=== PATIENT | male | born 1975 | race Caucasian/White ===

== ENCOUNTER 2016-10-12 15:19 | Inpatient (IN) | payer OTHER ==
[2016-10-12 15:56] VITALS: BMI 43.3
--- NOTE | 2016-10-12 17:55 | HP ---
CIWA Score - CIWA Score Nausea/Vomitin Muscle Tremors: 3 Anxiety: 3 Agitation: 3 Paroxysmal Sweats: 2 Orientation: 0-Oriented Tacttile Disturbances: 2-Mild Itch/Numbness/Burn Auditory Disturbances: 2-Mild Harshness/Frighten Visual Disturbances: 2-Mild Sensitivity Headache: 2-Mild CIWA-Ar Total Score: 22 Admission ROS BHS - HPI Chief Complaint: i need help to stop drinking alcohol and cocaine Allergies/Adverse Reactions: Allergies Allergy/AdvReac Type Severity Reaction Status Date / Time Penicillins Allergy Severe Jaw swollen Verified 10/12/16 20:21 bee stings Allergy Severe Swelling Uncoded 10/12/16 20:22 History of Present Illness: this 41 years old male with alcohol and cocaine dependence,withdrawal symptom, last detox [facility] 02/03/15 to 02/07/15 syncope alcohl related morbid obesity hypertension schizoaffective disorder Exam Limitations: No Limitations - Ebola screening Have you traveled outside of the country in the last 21 days: No Have you had contact with anyone from an Ebola affected area: No Have you been sick,other than usual withdrawal symptoms: No Do you have a fever: No - Review of Systems Constitutional: Loss of Appetite, Malaise, Night Sweats, Changes in sleep, Weakness EENT: reports: Nose Congestion Respiratory: reports: No Symptoms reported (sleep apnea) Cardiac: reports: No Symptoms Reported GI: reports: Nausea, Vomiting, Abdominal cramping : reports: No Symptoms Reported Musculoskeletal: reports: Back Pain, Muscle Pain Integumentary: reports: Dryness Neuro: reports: Headache, Tremors Endocrine: reports: No Symptoms Reported Hematology: reports: No Symptoms Reported Psychiatric: reports: Judgement Intact, Mood/Affect Appropiate, Orientated x3 ( schizoaffective disorder), other Patient History - Patient Medical History Hx Anemia: No Hx Asthma: No Hx Chronic Obstructive Pulmonary Disease (COPD): No Hx Cancer: No Hx Cardiac Disorders: No Hx Congestive Heart Failure: No Hx Hypertension: Yes (on med) Hx Hypercholesterolemia: No Hx Pacemaker: No HX Cerebrovascular Accident: No Hx Seizures: No Hx Dementia: No Hx Diabetes: No Hx Gastrointestinal Disorders: No Hx Liver Disease: No Hx Genitourinary Disorders: No Hx Sexually Transmitted Disorders: No Hx Renal Disease (ESRD): No Hx Thyroid Disease: No Hx Human Immunodeficiency Virus (HIV): No (last 2014negative ) Hx Hepatitis C: No Hx Depression: Yes Hx Suicide Attempt: No Hx Bipolar Disorder: Yes Hx Schizophrenia: No Other Medical History: no suicidal,nohomicidal - Patient Surgical History Past Surgical History: Yes Hx Cataract Extraction: No (eye surgery right , 1993) Hx Orthopedic Surgery: Yes (RIGHT KNEE SURGERY 1997) Other Surgical History: right eye muscle weaknee he uses glasses Anesthesia Reaction: No - PPD History Previous Implant?: Yes Documented Results: Negative w/o proof Date: 02/15/15 Results: 0 mm PPD to be Administered?: Yes - Smoking Cessation Smoking history: Current every day smoker Have you smoked in the past 12 months: Yes Aproximately how many cigarettes per day: 3 Cigars Per Day: 0 Hx Chewing Tobacco Use: No Initiated information on smoking cessation: Yes 'Breaking Loose' booklet given: 10/12/16 - Substance & Tx. History Hx Alcohol Use: Yes Hx Substance Use: Yes Substance Use Type: Alcohol, Cocaine Hx Substance Use Treatment: Yes ([facility] 02/03/15 to 02/07/15) - Substances Abused Alcohol Route: Oral Frequency: 1-3 times last 30 days Amount used: 12 of 12 ozs of beer Age of first use: 11 Date of Last Use: 10/12/16 Cocaine Route: Inhalation Frequency: 1-2 times per week Amount used: 40$ Age of first use: 16 Date of Last Use: 10/10/16 Family Disease History - Family Disease History Family Disease History: Heart Disease: Father (alcohol,), Mother, Other : Father Admission Physical Exam S - Vital Signs Vital Signs: Vital Signs - 24 hr 10/12/16 15:54 Temperature 99.2 F Pulse Rate 79 Respiratory 20 Rate Blood Pressure 133/86 - Physical General Appearance: Yes: Intoxicated, Obese, Tremorous, Irritable, Sweating, Anxious HEENTM: Yes: Normal ENT Inspection, LUL, Pharynx Normal Respiratory: Yes: Lungs Clear, Normal Breath Sounds, No Respiratory Distress Neck: Yes: Within Normal Limits Breast: Yes: Within Normal Limits Cardiology: Yes: Within Normal Limits, Regular Rhythm, Regular Rate, S1, S2 Abdominal: Yes: Normal Bowel Sounds, Non Tender, Flat, Soft Genitourinary: Yes: Within Normal Limits Back: Yes: Muscle Spasm Musculoskeletal: Yes: Within Normal Limits, full range of Motion, Back pain 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 intact, Alert, Motor Strength 5/5 Integumentary: Yes: Dry Lymphatic: Yes: Within Normal Limits - Diagnostic (1) Schizoaffective disorder Current Visit: No Status: Acute (2) Hypertension Current Visit: No Status: Chronic (3) Morbidly obese Current Visit: No Status: Chronic (4) Alcohol dependence with uncomplicated withdrawal Current Visit: Yes Status: Acute (5) Alcohol dependence with uncomplicated intoxication Current Visit: Yes Status: Acute Cleared for Admission [facility] - Detox or Rehab [facility] Level of Care: Medically Managed Detox Regimen/Protocol: Librium [facility] Breath Alcohol Content Breath Alcohol Content: 0.227 Urine Drug Screen - Results Drug Screen Negative: No Urine Drug Screen Results: [place]-Cocaine, MET-Methamphetamine
[2016-10-12] MEDS ORDERED: chlordiazePOXIDE HCL 25 MG CAPSULE PO PRN (18:07)
[2016-10-12] MEDS ORDERED: IBUPROFEN 400 MG TABLET (FP) PO PRN (18:07)
[2016-10-12] MEDS ORDERED: hydrOXYzine PAMOATE 50 MG CAPSULE (FP) PO PRN (18:07)
[2016-10-12] MEDS ORDERED: LOPERAMIDE HCL 2 MG CAPSULE PO PRN (18:07)
[2016-10-12] MEDS ORDERED: ACETAMINOPHEN 325 MG TABLET (FP) PO PRN (18:07)
[2016-10-12] MEDS ORDERED: MAGNESIUM CITRATE 300 ML BOTTLE PO PRN (18:07)
[2016-10-12] MEDS ORDERED: MAG HYDROX/AL HYDROX/SIMETH 30 ML UNIT-DOSE CUP PO PRN (18:07)
[2016-10-12] MEDS ORDERED: chlordiazePOXIDE HCL 25 MG CAPSULE PO ONE (18:07)
[2016-10-12] MEDS ORDERED: MAGNESIUM HYDROX 2400MG/30ML ORAL SUSPENSION 30 ML CUP PO PRN (18:07)
[2016-10-12] MEDS ORDERED: P-EPHED 60MG/TRIPROLIDI 2.5MG TABLET PO PRN (18:07)
[2016-10-12] MEDS ORDERED: MENTHOL/PHENOL 1 EACH UD MM PRN (18:07)
[2016-10-12] MEDS ORDERED: guaiFENesin/D-METHORPHAN HB 10 ML UNIT-DOSE CUPS PO PRN (18:07)
[2016-10-12] MEDS: NICOTINE 14 MG/24 HOURS TOPICAL PATCH TD SCH (20:02)
[2016-10-12] MEDS: chlordiazePOXIDE HCL 25 MG CAPSULE PO SCH (22:14)
[2016-10-12] MEDS: diphenhydrAMINE HCL 50 MG CAPSULE PO PRN (22:14)
[2016-10-12] MEDS: THIAMINE HCL 100 MG TABLET (FP) PO SCH (22:14)
[2016-10-13] MEDS: diphenhydrAMINE HCL 50 MG CAPSULE PO PRN (00:55)
[2016-10-13] MEDS: chlordiazePOXIDE HCL 25 MG CAPSULE PO SCH ×3 (04:51→18:24)
[2016-10-13] MEDS: FUROSEMIDE 40 MG TABLET (FP) PO SCH ×2 (05:46→14:09)
[2016-10-13] MEDS ORDERED: cloNIDine HCL 0.1 MG TABLET PO ONE (07:40)
--- NOTE | 2016-10-13 08:42 | EKG ---
Test Reason : Blood Pressure : / mmHG Vent. Rate : 081 BPM Atrial Rate : 081 BPM P-R Int : 172 ms QRS Dur : 112 ms QT Int : 408 ms P-R-T Axes : -03 057 049 degrees QTc Int : 473 ms NORMAL SINUS RHYTHM INCOMPLETE LEFT BUNDLE BRANCH BLOCK BORDERLINE ECG NO PREVIOUS ECGS AVAILABLE Confirmed by RONALD LAYNE MD ([id number]) on 10/13/2016 8:42:17 AM Referred By: Confirmed By:RONALD LAYNE MD
[2016-10-13 09:32] VITALS: BP 160/90; PULSE 79; TEMP 96.1
[2016-10-13] MEDS ORDERED: PRENATAL VITAMINS W/ FOLIC ACID TABLET (FP) PO SCH (10:00)
[2016-10-13] MEDS ORDERED: RAMIPRIL 5 MG CAPSULE (FP) PO SCH (10:00)
[2016-10-13] MEDS ORDERED: ATENOLOL 50 MG TABLET (FP) PO SCH (10:00)
[2016-10-13] MEDS: NICOTINE 14 MG/24 HOURS TOPICAL PATCH TD SCH (10:07)
[2016-10-13 10:09] LABS: MCH 31.9 pg (25.7-33.7); MEAN CELL VOLUME 96.8 fl (80-96); MEAN PLT VOLUME 9.1 fl (7.5-11.1); PLATELET COUNT 90 K/MM3 (134-434); RDW 14.6 % (11.9-15.9); WHITE BLOOD COUNT 6.3 K/mm3 (4.0-10.0)
[2016-10-13 10:20] LABS: ALBUMIN 3.4 g/dl (3.4-5.0); ALK PHOS 97 U/L (45-117); ANION GAP 11 (8-16); BILIRUBIN,TOTAL 1.3 mg/dL (0.2-1.0); CALCIUM 9.1 mg/dL (8.5-10.1); CO2 26 mmol/L (21-32); COCKROFT - GAULT 286.44; CREATININE 0.8 mg/dL (0.7-1.3); GLUCOSE,RANDOM 145 mg/dL (74-106); SGOT/AST 106 U/L (15-37); SGPT/ALT 65 U/L (12-78); TOT PROT 6.8 g/dl (6.4-8.2)
--- NOTE | 2016-10-13 10:42 | PN ---
[facility] CIWA - CIWA Score Nausea/Vomitin-No Nausea/No Vomiting Muscle Tremors: 4-Moderate,w/Arms Extend Anxiety: 4-Mod. Anxious/Guarded Agitation: 4-Moderately Restless Paroxysmal Sweats: 3 Orientation: 0-Oriented Tacttile Disturbances: 1-Very Mild Itch/Numbness Auditory Disturbances: 0-None Visual Disturbances: 0-None Headache: 0-None Present CIWA-Ar Total Score: 16 BHS Progress Note (SOAP) Subjective: Anxiety,tremors,sweating,interrupted sleep,restless Objective: 10/13/16 10:40 Vital Signs - 8 hr 10/13/16 10/13/16 10/13/16 03:30 06:29 09:32 Temperature 97.5 F L 96.1 F L Pulse Rate 82 78 79 Respiratory 18 16 18 Rate Blood Pressure 172/93 160/90 Laboratory Tests 10/13/16 10/13/16 07:00 07:00 WBC 6.3 RBC 4.40 Hgb 14.0 Hct 42.6 MCV 96.8 H MCHC 33.0 RDW 14.6 Plt Count 90 L D MPV 9.1 Sodium 142 Potassium 3.4 L Chloride 105 Carbon Dioxide 26 Anion Gap 11 BUN 4 L D Creatinine 0.8 D Creat Clearance w eGFR > 60 Random Glucose 145 H D Calcium 9.1 Total Bilirubin 1.3 H D AST 106 H D ALT 65 Alkaline Phosphatase 97 Total Protein 6.8 Albumin 3.4 swelling both legs because of venous stasis Assessment: 10/13/16 10:40 Withdrawal sx. Plan: Continue detox increase altace to 10mg d/c atenolol,pt. was on metoprolol.
[2016-10-13] MEDS ORDERED: RAMIPRIL 5 MG CAPSULE (FP) PO ONE (11:15)
[2016-10-13 11:16] LABS: HIV 1 & 2 AB NEGATIVE; HIV 1 AGp24 NEGATIVE
--- NOTE | 2016-10-13 11:36 | PN ---
[id number] given to Dr. Hodge
[2016-10-13] MEDS ORDERED: INFLUENZA VACCINE 45 MCG/0.5 ML (MDV 16-17) IM ONE (12:00)
[2016-10-13] MEDS: POTASSIUM CHLORIDE TABS 20 MEQ TABLET.ER (FP) PO SCH ×2 (12:00→23:16)
--- NOTE | 2016-10-13 12:27 | CONSULT ---
[facility] Psychiatric Consult - Data Date of interview: 10/13/16 Admission source: [facility] Identifying data: Readmission to [facility] for this 41 y/o male seeking detox treatment for alcohol and cocaine dependence.Patient is ,a father of one,domiciled,unemployed and supported on Social Security benefits. Substance Abuse History: - Smoking Cessation. Smoking history: Current every day smoker. Have you smoked in the past 12 months: Yes. Aproximately how many cigarettes per day: 3. Cigars Per Day: 0. Hx Chewing Tobacco Use: No. Initiated information on smoking cessation: Yes. 'Breaking Loose' booklet given : 10/12/16. - Substance & Tx. History. Hx Alcohol Use: Yes. Hx Substance Use : Yes. Substance Use Type: Alcohol, Cocaine. Hx Substance Use Treatment: Yes ( [facility] 02/03/15 to 02/07/15). - Substances Abused. Alcohol. Route: Oral. Frequency: 1-3 times last 30 days. Amount used: 12 of 12 ozs of beer. Age of first use: 11. Date of Last Use: 10/12/16. Cocaine. Route: Inhalation. Frequency: 1-2 times per week. Amount used: 40$. Age of first use: 16. Date of Last Use: 10/10/16. Confirmed by patient. Medical History: Morbid obesity,hypertension and venous stasis (lower extremities).History of cataract extraction (right eye) and orthopedic surgery in 1997 (right knee). Psychiatric History: Significant history of psychiatric illness.Extended stay at the [facility] five years ago.Diagnosed with " Bipolar Disorder and Schizophrenia ".Maintained on a regimen of lithium 600 mg/am + 900 mg/hs + prozac 30 mg po daily + risperdal 4 mg/hs.Mr Rodriguez reports that he is followed by a private psychiatrist,Dr Gandara,in [place], [place].He denies history of suicide attempts.Last took his medications two days ago ( prior to this [facility] visit). Physical/Sexual Abuse/Trauma History: No history of sexual abuse reported. Additional Comment: Urine Drug Screen Results: [place]-Cocaine, MET- Methamphetamine.Noted Mental Status Exam - Mental Status Exam Alert and Oriented to: Time, Place, Person Cognitive Function: Good Patient Appearance: Well Groomed (morbidly obese,imposing stature) Mood: Nervous, Anxious, Apprehensive Affect: Mood Congruent Patient Behavior: Fatigued (heavy breathing), Cooperative Speech Pattern: Clear, Appropriate Voice Loudness: Normal Thought Process: Goal Oriented Thought Disorder: Not Present Hallucinations: Denies Suicidal Ideation: Denies Homicidal Ideation: Denies Insight/Judgement: Poor Sleep: Fair Appetite: Good Muscle strength/Tone: Normal Gait/Station: Normal Psychiatric Findings - Problem List ([place] 1, 2,3) (1) Alcohol dependence with uncomplicated withdrawal Current Visit: Yes Status: Acute (2) Cocaine dependence Current Visit: Yes Status: Acute (3) Nicotine dependence Current Visit: Yes Status: Acute (4) Amphetamine abuse Current Visit: Yes Status: Acute (5) Schizoaffective disorder Current Visit: Yes Status: Chronic (6) Dyspnea on exertion Current Visit: Yes Status: Acute (7) Acne rosacea Current Visit: Yes Status: Chronic (8) Hypertension Current Visit: Yes Status: Chronic (9) Morbidly obese Current Visit: Yes Status: Chronic (10) Right ankle swelling Current Visit: Yes Status: Acute - Initial Treatment Plan Initial Treatment Plan: Psychoeducation.Detoxification.Obtain lithium level.Patient got transferred to [facility] for medical care prior to initiation of psychotropic medications (lithium,risperdal and prozac) at [facility].Liaison-Psychiatry will follow at [facility].
[2016-10-13] MEDS ORDERED: METOPROLOL TARTRATE 50 MG TABLET (FP) PO SCH (22:00)
[2016-10-13] MEDS ORDERED: chlordiazePOXIDE HCL 25 MG CAPSULE PO SCH (23:00)
[2016-10-13] MEDS: THIAMINE HCL 100 MG TABLET (FP) PO SCH (23:17)
[2016-10-14] MEDS ORDERED: RAMIPRIL 5 MG CAPSULE (FP) PO SCH (10:00)
[2016-10-14] MEDS ORDERED: chlordiazePOXIDE 5 MG CAPSULE PO SCH (23:00)
[2016-10-15] MEDS ORDERED: chlordiazePOXIDE HCL 10 MG CAPSULE PO SCH (23:00)
== END 2016-10-13 23:21 | disposition short-term general hospital (02) | DRG 774 ==
LOC: YASAS 15:19 → Y3N 16:21
PROVIDERS: ADMIT Internal Medicine; ATTEND Internal Medicine
PROC: HZ2ZZZZ Detoxification Services for Substance Abuse Treatment (ICD-10-PCS; principal; 2016-10-12)
DX: F10.230 Alcohol dependence with withdrawal, uncomplicated (principal); F14.20 Cocaine dependence, uncomplicated; F15.10 Other stimulant abuse, uncomplicated; F17.210 Nicotine dependence, cigarettes, uncomplicated; E66.01 Morbid (severe) obesity due to excess calories; Z68.41 Body mass index [BMI] 40.0-44.9, adult; R06.02 Shortness of breath; R06.00 Dyspnea, unspecified; L71.9 Rosacea, unspecified; I10 Essential (primary) hypertension; M25.471 Effusion, right ankle; M25.472 Effusion, left ankle
CPT/HCPCS: 36415; 80053; 85027; 86593; 87389; 93005; 93010

== ENCOUNTER 2016-10-13 11:59 | Inpatient (IN) | payer OTHER ==
[2016-10-13] MEDS ORDERED: ASPIRIN 81 MG CHEWABLE TABLETS PO ONE (12:07)
[2016-10-13] MEDS ORDERED: FUROSEMIDE 40 MG/4 ML INJECTABLE VIAL IVPUSH ONE (12:25)
[2016-10-13] MEDS ORDERED: ASPIRIN 81 MG CHEWABLE TABLETS ONE (12:27)
[2016-10-13 12:29] VITALS: BMI 42.7
--- NOTE | 2016-10-13 12:36 | PDOC ---
History of Present Illness - General History Source: Patient, Old Records Exam Limitations: No Limitations - History of Present Illness Initial Comments: 10/13/16 12:43 The patient is a 41-year-old man with a significant past medical history of hypertension, polysubstance abuse (alcohol and cocaine dependence last detox at [facility] was 10/12/2016 for alcohol; prior to that last detox was in 2014 for alcohol as well), syncope- alcohol related, schizophrenia, bipolar disorder, anxiety who was sent from [facility] for further evaluation of shortness of breath. Upon ER arrival, patient was noted to be 99% on room air. He self- admitted himself at [facility], due top extensive alcohol abuse over the weekend (Vodka), yesterday. Patient states that during admission, he felt short of breath with associated symptoms of left-sided chest pressure sensations while lying supine. He describes his symptoms as "running in a marathon". His nurse immediately pulled his stretcher up, which helped significantly with his symptoms. He recalls also feeling short of breath when walking for the past few days. Despite compliance with all of his medications, including Lasix (40 mg BID ), he notes worsening leg swelling. He also notes significant weight gain throughout a 6-7 month period (reports 60 lbs). He also reports urinary frequency. No history of myocardial infarction, stents, cardiac cauterization. No fever, chills, weakness. No headaches, lightheadedness, dizziness, palpitations, cough, neck pain. No dysuria, foul smelling urine. Allergies: Penicillin. Past Surgical History: Right eye surgery. Right knee surgery. Social History: Current everyday cigarette smoker (approximately 3 cigarettes/ day). Daily ETOH use. Cocaine use (lats use was 2 months ago). <Mine Dangelo - Last Filed: 10/13/16 15:04> <Mc Carrera - Last Filed: 10/13/16 15:09> - General Chief Complaint: Shortness of Breath Stated Complaint: Shortness of Breath Time Seen by Provider: 10/13/16 12:03 Past History <Mine Dangelo - Last Filed: 10/13/16 15:04> - Past Medical History Anemia: No Asthma: No Cancer: No Cardiac Disorders: No CVA: No COPD: No CHF: No Dementia: No Diabetes: No GI Disorders: No Disorders: No HTN: Yes (on med) Hypercholesterolemia: No Kidney Stones: No Liver Disease: No Psychiatric Problems: Yes (Schizophrenia Bipolar) Suicide Attempt (Hx): No Seizures: No Thyroid Disease: No Other medical history: Venous Stasis Alcohol abuse Cocaine abuse - Surgical History Abdominal Surgery: No Appendectomy: No Cardiac Surgery: No Cholecystectomy: No Lung Surgery: No Neurologic Surgery: No Orthopedic Surgery: Yes (RIGHT KNEE SURGERY 1997) - Family Disease History Family Disease History: Heart Disease: Father (hypertension) - Reproductive History Testicular Surgery: No - Psycho/Social/Smoking Cessation Hx Anxiety: Yes Suicidal Ideation: No Smoking History: Current every day smoker Have you smoked in the past 12 months: Yes Number of Cigarettes Smoked Daily: 4 Cigars Per Day: 0 Information on smoking cessation initiated: Yes 'Breaking Loose' booklet given: 10/13/16 Hx Alcohol Use: Yes (daily) Drug/Substance Use Hx: Yes (cocaine) Substance Use Type: Alcohol, Cocaine Hx Substance Use Treatment: Yes ([facility] 02/03/15 to 02/07/15) <Mc Carrera - Last Filed: 10/13/16 15:09> - Past Medical History Allergies/Adverse Reactions: Allergies Allergy/AdvReac Type Severity Reaction Status Date / Time Penicillins Allergy Severe Jaw swollen Verified 10/13/16 12:17 bee stings Allergy Severe Swelling Uncoded 10/13/16 12:17 Home Medications: Ambulatory Orders [place] Carbonate [Eskalith -] 600 mg PO AM 10/12/16 [place] Carbonate [Eskalith -] 900 mg PO HS 10/12/16 Chlordiazepoxide [Librium -] 0 mg PO ASDIR 10/13/16 Fluoxetine HCl [Prozac] 30 mg PO DAILY 10/13/16 Furosemide [Lasix -] 40 mg PO BID 10/13/16 Hydroxyzine Pamoate [Vistaril -] 50 mg PO Q4H PRN 10/13/16 Metoprolol Tartrate [Lopressor] 50 mg PO BID 10/13/16 Nicotine Patch [Nicoderm Patch -] 1 patch TD DAILY 10/13/16 Ramipril 10 mg PO DAILY 10/13/16 Risperidone 4 mg PO HS 10/13/16 Thiamine HCl [Vitamin B1] 100 mg PO DAILY 04/17/17 Review of Systems - Review of Systems Constitutional: No: Chills, Fever Respiratory: Yes: Orthopnea, Shortness of Breath, SOB with Exertion. No: Cough Cardiac (ROS): Yes: Chest Pain, Edema. No: Lightheadedness, Palpitations ABD/GI: Yes: Nausea. No: Vomiting All Other Systems: Reviewed and Negative <Mc Carrera - Last Filed: 10/13/16 15:09> *Physical Exam - Vital Signs Last Vital Signs Temp Pulse Resp BP Pulse Ox 97.9 F 70 18 153/89 99 10/13/16 12:17 10/13/16 12:17 10/13/16 12:17 10/13/16 12:17 10/13/16 12:17 - Physical Exam Comments: 10/13/16 12:44 GENERAL: The patient is awake, alert, and fully oriented, in no acute distress. Morbidly obese. HEAD: Normal with no signs of trauma. EYES: Pupils equal, round and reactive to light, extraocular movements intact, sclera anicteric, conjunctiva clear with no pallor. ENT: Ears normal, nares patent, oropharynx clear without exudates. Moist mucous membranes. NECK: Normal range of motion, supple without lymphadenopathy, JVD, or masses. LUNGS: Slight decreased at the bases but inspiratory crackles. No wheezing. HEART: Regular rate and rhythm, normal S1 and S2 without murmur or rub. ABDOMEN: Soft/nontender/nondistended. BS wnl. No guarding or rebound. No palpable masses. No hepatosplenomegaly. EXTREMITIES: Early hilary stasis development. 2+ pitting edema, bilaterally. Normal range of motion. No clubbing or cyanosis. No cords, erythema, or tenderness. NEUROLOGICAL: Cranial nerves II through XII grossly intact. Normal speech. PSYCH: Normal mood, normal affect. SKIN: Warm, Dry, normal turgor, no rashes or lesions noted. <Mine Dangelo - Last Filed: 10/13/16 15:04> - Vital Signs Last Vital Signs Temp Pulse Resp BP Pulse Ox 97.9 F 70 18 153/89 99 10/13/16 12:17 10/13/16 12:17 10/13/16 12:17 10/13/16 12:17 10/13/16 12:17 <Mc Carrera - Last Filed: 10/13/16 15:09> Heart Score/ECG Review #1 ECG reviewed & interpreted by me at: 12:11 General ECG Interpretation: Sinus Rhythm, Normal Rate (68), Normal Intervals, No acute ischemic changes <Mc Carrera - Last Filed: 10/13/16 15:09> ED Treatment Course - LABORATORY CBC & Chemistry Diagram: 10/13/16 12:35 10/13/16 12:35 - RADIOLOGY Radiograph Interpretation: 10/13/16 13:16 EXAM: RAD/CHEST PA LAT Chest: HISTORY IMPRESSION: Frontal and lateral view of the chest is provided. There is moderate cardiomegaly. There is increased perihilar vascular lung markings and mild increased interstitial lung markings concerning for CHF. No focal consolidation or pleural effusion is seen. - Medications Given in the ED: ED Medications Discontinued Medications Generic Name Dose Route Start Last Admin Trade Name Freq PRN Reason Stop Dose Admin Aspirin 162 mg 10/13/16 12:07 10/13/16 12:41 Asa - PO 10/13/16 12:08 162 mg ONCE ONE Administration <Mine Dangelo - Last Filed: 10/13/16 15:04> - LABORATORY CBC & Chemistry Diagram: 10/13/16 12:35 10/13/16 12:35 - RADIOLOGY Radiology Studies Ordered: Category Date Time Status CHEST PA & LAT [RAD] Stat Radiology 10/13/16 12:07 Ordered <[email or web address] - Last Filed: 10/13/16 15:09> Medical Decision Making - Medical Decision Making 10/13/16 14:[address] Dominguez. 10/13/16 15:[address] Dominguez. 10/13/16 15:[address] Dominguez. Case was discussed. <Mine Dangelo - Last Filed: 10/13/16 15:04> - Medical Decision Making 10/13/16 12:37 A portion of this note was documented by scribe services under my direction. I have reviewed the details of the note, within reason, and agree with the documentation with the following case summary and management plan written by me. 41-year-old male with history of hypertension, alcohol and cocaine abuse sent from [facility] where he was admitted yesterday for alcohol detox now complaining of worsening shortness of breath with dyspnea on exertion and orthopnea, associated localized left-sided chest pressure today. Has been compliant with his medications, last cocaine use was 2 weeks ago, but reports months of worsening leg edema and weight gain. No history of NM or stents. Vital signs normal. Morbidly obese. Bibasilar crackles. Bilateral edema. 41-year-old male with history of hypertension and alcohol/cocaine abuse with progressive dyspnea/volume overload and now chest pressure. Will need cardiac workup to rule out ACS versus CHF exacerbation. Labs, urinalysis EKG, chest x-ray Aspirin, Lasix Admission 10/13/16 15:08 CXR consistent with congestion. labs wnl, trop negative. comfortable in stretcher, accepted for inpatient tele by Dr. Dominguez. <Mc Carrera - Last Filed: 10/13/16 15:09> *DC/Admit/Observation/Transfer - Attestations Scribe Attestion: 10/13/16 12:44 Documentation prepared by Mine Dangelo, acting as medical assisting instructor for Mc Carrera MD. <Mine Dangelo - Last Filed: 10/13/16 15:04> - Discharge Dispostion Admit: Yes <Mc Carrera - Last Filed: 10/13/16 15:09> Diagnosis at time of Disposition: Precordial chest pain, Dyspnea on exertion - Discharge Dispostion Condition at time of disposition: Fair - Referrals Referrals: Jamie New MD [Primary Care Provider] -
[2016-10-13] MEDS ORDERED: FUROSEMIDE 40 MG/4 ML INJECTABLE VIAL ONE (12:44)
[2016-10-13 13:22] LABS: BASOPHIL 1.1 % (0-2.0); EOSINOPHIL 1.4 % (0-4.5); MCH 32.3 pg (25.7-33.7); MCHC 33.8 g/dl (32.0-35.9); MEAN CELL VOLUME 95.7 fl (80-96); MEAN PLT VOLUME 8.9 fl (7.5-11.1); NEUTROPHILS 63.2 % (42.8-82.8); PLATELET COUNT 87 K/MM3 (134-434); RDW 14.9 % (11.9-15.9)
[2016-10-13 13:43] LABS: INR 1.44 (0.82-1.09)
[2016-10-13 13:50] LABS: CALCIUM 9.2 mg/dL (8.5-10.1)
[2016-10-13 14:10] LABS: ALBUMIN 3.5 g/dl (3.4-5.0); ALK PHOS 99 U/L (45-117); ANION GAP 8 (8-16); BILIRUBIN,TOTAL 1.6 mg/dL (0.2-1.0); CO2 29 mmol/L (21-32); CREATININE 0.7 mg/dL (0.7-1.3); GLUCOSE,RANDOM 97 mg/dL (74-106); MAGNESIUM 1.4 mg/dL (1.8-2.4); SGOT/AST 104 U/L (15-37); SGPT/ALT 66 U/L (12-78); TOT PROT 7.1 g/dl (6.4-8.2); TROPONIN I < 0.02 ng/ml (0.00-0.05)
[2016-10-13] MEDS ORDERED: LOPERAMIDE HCL 2 MG CAPSULE PO ONE (16:18)
[2016-10-13] MEDS ORDERED: chlordiazePOXIDE HCL 25 MG CAPSULE PO ONE (16:18)
[2016-10-13] MEDS ORDERED: LOPERAMIDE HCL 2 MG CAPSULE ONE (16:35)
[2016-10-13] MEDS ORDERED: chlordiazePOXIDE HCL 25 MG CAPSULE ONE (16:35)
--- NOTE | 2016-10-13 17:47 | HP ---
Admitting History and Physical - Primary Care Physician PCP: Carolann Dominguez - Admission History of Present Illness: 41-year-old man with a significant past medical history of hypertension, polysubstance abuse (alcohol and cocaine dependence last detox at [facility] was 10/12 for alcohol; prior to that last detox was in 2014 for alcohol as well), syncope- alcohol related, schizophrenia, bipolar disorder, anxiety who was sent from [facility] for further evaluation of shortness of breath. Upon ER arrival, patient was noted to be 99% on room air. He self-admitted himself at [facility], due top extensive alcohol abuse over the weekend (Vodka), yesterday. Patient states that during admission, he felt short of breath with associated symptoms of left-sided chest pressure sensations while lying supine. He describes his symptoms as "running in a marathon". His nurse immediately pulled his stretcher up, which helped significantly with his symptoms. He recalls also feeling short of breath when walking for the past few days. Despite compliance with all of his medications, including Lasix (40 mg BID), he notes worsening leg swelling. He also notes significant weight gain throughout a 6-7 month period (reports 60 lbs). He also reports urinary frequency. - Past Medical History Cardiovascular: Yes: HTN - Smoking History Smoking history: Current every day smoker Have you smoked in the past 12 months: Yes Aproximately how many cigarettes per day: 4 - Alcohol/Substance Use Hx Alcohol Use: Yes (daily) Home Medications - Allergies Allergies/Adverse Reactions: Allergies Allergy/AdvReac Type Severity Reaction Status Date / Time Penicillins Allergy Severe Jaw swollen Verified 10/13/16 12:17 bee stings Allergy Severe Swelling Uncoded 10/13/16 12:17 - Home Medications Home Medications: Ambulatory Orders [place] Carbonate [Eskalith -] 600 mg PO AM 10/12/16 [place] Carbonate [Eskalith -] 900 mg PO HS 10/12/16 Chlordiazepoxide [Librium -] 0 mg PO ASDIR 10/13/16 Fluoxetine HCl [Prozac] 30 mg PO DAILY 10/13/16 Furosemide [Lasix -] 40 mg PO BID 10/13/16 Hydroxyzine Pamoate [Vistaril -] 50 mg PO Q4H PRN 10/13/16 Metoprolol Tartrate [Lopressor] 50 mg PO BID 10/13/16 Nicotine Patch [Nicoderm Patch -] 1 patch TD DAILY 10/13/16 Ramipril 10 mg PO DAILY 10/13/16 Risperidone 4 mg PO HS 10/13/16 Thiamine HCl [Vitamin B1] 100 mg PO DAILY 10/13/16 Family Disease History - Family Disease History Family Disease History: Heart Disease: Father (alcohol,), Mother, Other : Father Physical Examination Vital Signs: Vital Signs Temperature 97.9 F 10/13/16 12:17 Pulse Rate 71 10/13/16 16:31 Respiratory Rate 16 10/13/16 16:31 Blood Pressure 160/89 10/13/16 16:31 O2 Sat by Pulse Oximetry (%) 97 10/13/16 16:31 Constitutional: Yes: No Distress HENT: Yes: Atraumatic Neck: Yes: Supple Cardiovascular: Yes: Regular Rate and Rhythm Respiratory: Yes: Rhonchi Gastrointestinal: Yes: Normal Bowel Sounds Extremities: Yes: WNL Edema: LLE: 1+, RLE: 1+ Neurological: Yes: Alert, Oriented Problem List - Problems (1) Alcohol dependence with uncomplicated intoxication Assessment/Plan: on librium prn detox consult Code(s): F10.220 - ALCOHOL DEPENDENCE WITH INTOXICATION, UNCOMPLICATED (2) Alcohol dependence with uncomplicated withdrawal Code(s): F10.230 - ALCOHOL DEPENDENCE WITH WITHDRAWAL, UNCOMPLICATED (3) Amphetamine abuse Code(s): F15.10 - OTHER STIMULANT ABUSE, UNCOMPLICATED (4) Cocaine dependence Code(s): F14.20 - COCAINE DEPENDENCE, UNCOMPLICATED (5) Dyspnea on exertion Code(s): R06.09 - OTHER FORMS OF DYSPNEA (6) Nicotine dependence Assessment/Plan: on nicotine patch Code(s): F17.200 - NICOTINE DEPENDENCE, UNSPECIFIED, UNCOMPLICATED (7) Precordial chest pain Assessment/Plan: fu cardiac enzymes cardiology consult Code(s): R07.2 - PRECORDIAL PAIN (8) Right ankle swelling Code(s): M25.471 - EFFUSION, RIGHT ANKLE Assessment/Plan Laboratory Tests 10/13/16 10/13/16 10/13/16 12:35 12:35 12:35 WBC 7.0 RBC 4.44 Hgb 14.3 Hct 42.4 MCV 95.7 MCHC 33.8 RDW 14.9 Plt Count 87 L MPV 8.9 Neutrophils % 63.2 Lymphocytes % 19.4 Monocytes % 14.9 H Eosinophils % 1.4 Basophils % 1.1 INR 1.44 H Sodium 143 Potassium 3.9 Chloride 106 Carbon Dioxide 29 Anion Gap 8 BUN 4 L Creatinine 0.7 Creat Clearance w eGFR > 60 Random Glucose 97 D Calcium 9.2 Magnesium 1.4 L Total Bilirubin 1.6 H D AST 104 H ALT 66 Alkaline Phosphatase 99 Creatine Kinase 543 H Creatine Kinase Index 0.7 CK-MB (CK-2) 3.972 H CK-MB (CK-2) Rel Index Troponin I < 0.02 B-Natriuretic Peptide Total Protein 7.1 Albumin 3.5 10/13/16 10/13/16 12:35 12:35 WBC RBC Hgb Hct MCV MCHC RDW Plt Count MPV Neutrophils % Lymphocytes % Monocytes % Eosinophils % Basophils % INR Sodium Potassium Chloride Carbon Dioxide Anion Gap BUN Creatinine Creat Clearance w eGFR Random Glucose Calcium Magnesium Total Bilirubin AST ALT Alkaline Phosphatase Creatine Kinase Creatine Kinase Index CK-MB (CK-2) CK-MB (CK-2) Rel Index Cancelled Troponin I B-Natriuretic Peptide 108.44 Total Protein Albumin Active Medications Generic Name Dose Route Start Last Admin Trade Name Freq PRN Reason Stop Dose Admin Fluoxetine HCl 30 mg 10/14/16 10:00 Prozac - PO DAILY [facility] Furosemide 40 mg 10/13/16 22:00 Lasix - PO BID [facility] [place] Carbonate 900 mg 10/13/16 22:00 Eskalith - PO HS [facility] [place] Carbonate 600 mg 10/14/16 07:00 Eskalith - PO AM [facility] Metoprolol Tartrate 50 mg 10/13/16 22:00 Lopressor - PO BID [facility] Nicotine 14 mg 10/13/16 18:00 10/13/16 18:23 Nicoderm Patch - TD 14 mg DAILY [facility] Administration Ramipril 10 mg 10/14/16 10:00 Altace - PO DAILY [facility] Risperidone 4 mg 10/13/16 22:00 Risperdal - PO HS [facility] Spironolactone 25 mg 10/13/16 22:00 Aldactone - PO BID [facility] Thiamine HCl 100 mg 10/14/16 10:00 Vitamin B1 - PO DAILY [facility]
[2016-10-13] MEDS: NICOTINE 14 MG/24 HOURS TOPICAL PATCH TD SCH (18:23)
[2016-10-13 18:53] LABS: TROPONIN I < 0.02 ng/ml (0.00-0.05)
--- NOTE | 2016-10-13 18:58 | PN ---
Progress Note (short form) - Note Progress Note: Chief Complaint: Events noted, notes reviewed, progressive dyspnea and increasing bilateral lower extremity edema with no clinical evidence of congestive heart failure, upper airway congestion with hypoventilation syndrome , probable sleep apnea History of Present Illness: Seen and examined in the emergency room. Full consult dictated - Current Medication List Current Medications Fluoxetine HCl (Prozac -) 30 mg PO DAILY [facility] Furosemide (Lasix -) 40 mg PO BID [facility] [place] Carbonate (Eskalith -) 900 mg PO HS [facility] [place] Carbonate (Eskalith -) 600 mg PO AM [facility] Metoprolol Tartrate (Lopressor -) 50 mg PO BID [facility] Nicotine (Nicoderm Patch -) 14 mg TD DAILY [facility] Last Admin: 10/13/16 18:23 Dose: 14 mg Ramipril (Altace -) 10 mg PO DAILY [facility] Risperidone (Risperdal -) 4 mg PO HS [facility] Thiamine HCl (Vitamin B1 -) 100 mg PO DAILY [facility] Review of Systems Constitutional: denies Chills or Fever Respiratory: reports: Dyspnea Cardiovascular: As noted above Gastrointestinal: denies Nausea, Vomiting, Diarrhea or Constipation or Abdominal Discomfort Genitourinary: No Symptoms Reported Musculoskeletal: No Symptoms Reported - Objective Vital Signs: Last Vital Signs Temp Pulse Resp BP Pulse Ox 97.9 F 71 16 160/89 97 10/13/16 12:17 10/13/16 16:31 10/13/16 16:31 10/13/16 16:31 10/13/16 16:31 Constitutional: No Distress, Calm Cardiovascular: S1-S2 Regular Rate Rhythm No Murmurs Clicks or Gallops Respiratory: Clear to auscultation and percussion Bilaterally Gastrointestinal: Soft benign Normal Bowel Sounds Ext: 2+ Edema Bilaterally Labs: Troponin, BNP 10/13/16 10/13/16 12:35 12:35 Troponin I < 0.02 B-Natriuretic Peptide 108.44 CBC, BMP 10/13/16 12:35 10/13/16 12:35 Hepatic Panel Total Bilirubin 1.6 mg/dL (0.2-1.0) H D 10/13/16 12:35 AST 104 U/L (15-37) H 10/13/16 12:35 ALT 66 U/L (12-78) 10/13/16 12:35 Alkaline Phosphatase 99 U/L (45-117) 10/13/16 12:35 Albumin 3.5 g/dl (3.4-5.0) 10/13/16 12:35 INR, PTT INR 1.44 (0.82-1.09) H 10/13/16 12:35 Assessment/Plan ASSESSMENT: 1. Clinical presentation with dyspnea and increasing bilateral lower extremity edema with no clinical evidence of congestive heart failure, upper airway congestion with hypoventilation syndrome, probable COPD, probable sleep apnea 2. Bilateral lower extremity edema related to chronic venous insufficiency, stasis dermatitis, 3. Coronary artery disease angina pectoris to be evaluated, can be done as outpatient 4. Diastolic left ventricular dysfunction with class 0 [place] Heart Association classification left ventricular failure 5. HTN 6. Thrombocytopenia and elevated INR, probably related to chronic liver disease , possible alcohol induced 7. Poly-substance abuse including alcohol, tobacco and Cocaine PLAN: 1. Continue Lopressor and titrate as tolerated 2. Continue Altace 3. Continue Lasix and add Aldactone 4. Ideally should be on ASA, but to defer in view of thrombocytopenia and elevated INR, probably related to chronic liver disease, 5. Echocardiography for evaluation of LV size and function and RVSP 6. Patient can be admitted to medical floor since there is no clinical evidence of de-compensated LV failure, ACS or sustained arrhythmia 7. Alcohol and drug detox, as per the primary team Ginger Vasquez MD
--- NOTE | 2016-10-13 20:18 | CONS ---
DATE OF CONSULTATION: 10/13/2016 REQUESTING PHYSICIAN: Carolann Dominguez M.D. CHIEF COMPLAINT: Dyspnea, increasing bilateral lower extremity edema. HISTORY OF PRESENT ILLNESS: A 41-year-old morbidly obese male with known history of hypertensive cardiovascular disease, substance abuse including alcohol, tobacco, and cocaine, who denied diabetes mellitus, hypercholesterolemia, family history of coronary artery disease who presented to [facility] emergency room after being transferred from our care with increasing dyspnea. Patient stated for the last several days he had been reporting dyspnea related to upper nasal congestion and in addition increasing bilateral lower extremity edema. Patient reported vague chest heaviness. Patient denied orthopnea or paroxysmal nocturnal dyspnea. Patient denied any palpitation, dizziness, lightheadedness, or syncope. Upon evaluation of the emergency room, patient was noted to have a borderline abnormal chest x-ray with a BNP of 108.44. PAST MEDICAL HISTORY: Hypertensive cardiovascular disease, chronic venous insufficiency with chronic bilateral lower extremity edema, depression, polysubstance abuse including alcohol, tobacco, and cocaine. FAMILY HISTORY: Positive coronary artery disease. ALLERGIES: PENICILLIN. MEDICAL THERAPY: Currently includes Prozac 30 mg once a day, Lasix 40 mg twice a day, lithium 900 mg once a day at night, lithium 600 mg once a day a.m., Lopressor 50 mg twice a day, nicotine patch 40 mg once a day, Altace 10 mg once a day, Risperdal 4 mg once a day, vitamin B1 100 mg once a day. REVIEW OF SYSTEMS: Head and neck: Denies headache, photophobia, blurring of vision. Respiratory: Denies cough, sputum production. Cardiovascular: As noted above. Gastrointestinal: Denies nausea, vomiting, diarrhea, abdominal discomfort. Genitourinary: No symptoms reported. Musculoskeletal: No symptoms reported. PHYSICAL EXAMINATION: Vital signs: Blood pressure 160/89 mmHg, pulse rate is 71 beats per minute. Head/Neck: Pupils equal, reactive to light and accommodation. Extraocular muscles intact. Anicteric sclerae. Negative JVD. No bruit appreciated. Chest: Clear to auscultation, percussion. Cardiovascular: S1, S2. Regular. No murmurs, clicks or gallops. Abdomen: Soft, benign. Normoactive bowel sounds. Extremity: 1 to 2+ bilateral edema. Intact distal pulses. No calf tenderness. Electrocardiogram not available in the chart. Chest x-ray was noted. Troponin was less than 0.02, beta natriuretic peptide was 108.44. CBC revealed white blood count 7.0, hemoglobin 14.3, platelet count 87, basic metabolic profile revealed a sodium of 143, potassium 3.9, BUN 4, creatinine 0.7, glucose 97. AST 104, ALT 66. INR 1.44. ASSESSMENT: 1. Clinical presentation with dyspnea and increasing bilateral lower extremity edema with no clinical evidence of congestive heart failure, upper airway congestion with hypoventilation syndrome probable chronic obstructive pulmonary disease, probable sleep apnea, bilateral lower extremity edema related to chronic venous insufficiency, stasis dermatitis, chronic liver disease with portal hypertension to be considered. 2. Coronary artery disease, angina pectoris to be evaluated. Can be performed on outpatient basis. 3. Diastolic left ventricular dysfunction with class 0 [place] Heart Association classification left ventricular failure. 4. Hypertensive cardiovascular disease. 5. Thrombocytopenia and elevated INR most likely related to chronic liver disease related to alcohol consumption with portal hypertension. 6. History of polysubstance abuse including alcohol, tobacco, and cocaine. RECOMMENDATION: 1. Continue Lopressor. 2. Continuation of Altace. 3. Continuation of Lasix in addition to Aldactone. 4. Ideally aspirin therapy should be added but defer in view of the above noted thrombocytopenia. 5. Echocardiography for evaluation of left ventricular size and function and measurement of right ventricular systolic pressure. 6. The patient can be admitted to the medical floor, since there is no clinical evidence of decompensated left ventricular failure, acute coronary syndrome, or sustained arrhythmia. 7. Alcohol and drug detox as per the primary team. Thank you for kind referral. SIMBA VORA M.D. [id number]
[2016-10-13] MEDS ORDERED: LITHIUM CARBONATE 300 MG CAPSULE (FP) PO SCH (22:00)
[2016-10-13] MEDS ORDERED: risperiDONE 1 MG TABLET (FP) PO SCH (22:00)
[2016-10-13] MEDS: SPIRONOLACTONE 25 MG TABLET (FP) PO SCH (23:18)
[2016-10-13] MEDS: chlordiazePOXIDE HCL 25 MG CAPSULE PO PRN (23:18)
[2016-10-13] MEDS: FUROSEMIDE 40 MG TABLET (FP) PO SCH (23:18)
[2016-10-13] MEDS: METOPROLOL TARTRATE 50 MG TABLET (FP) PO SCH (23:18)
[2016-10-14] MEDS: chlordiazePOXIDE HCL 25 MG CAPSULE PO PRN (06:05)
[2016-10-14] MEDS ORDERED: LITHIUM CARBONATE 300 MG CAPSULE (FP) PO SCH (07:00)
--- NOTE | 2016-10-14 09:31 | PN ---
Progress Note (short form) - Note Progress Note: Chief Complaint: Events noted, notes reviewed, dyspnea and bilateral lower extremity edema persists, no clinical evidence of congestive heart failurre History of Present Illness: Seen and examined on telemetry. Events noted, notes reviewed, dyspnea and bilateral lower extremity edema persists, no clinical evidence of congestive heart failurre - Current Medication List Current Medications Chlordiazepoxide HCl (Librium -) 25 mg PO Q6H PRN PRN Reason: WITHDRAWAL(CONT SUBST) Last Admin: 10/14/16 06:05 Dose: 25 mg Fluoxetine HCl (Prozac -) 30 mg PO DAILY [facility] Furosemide (Lasix -) 40 mg PO BID [facility] Last Admin: 10/13/16 23:18 Dose: 40 mg [place] Carbonate (Eskalith -) 900 mg PO HS [facility] Last Admin: 10/13/16 23:17 Dose: 900 mg [place] Carbonate (Eskalith -) 600 mg PO AM [facility] Last Admin: 10/14/16 06:05 Dose: 600 mg Metoprolol Tartrate (Lopressor -) 50 mg PO BID [facility] Last Admin: 10/13/16 23:18 Dose: 50 mg Nicotine (Nicoderm Patch -) 14 mg TD DAILY [facility] Last Admin: 10/13/16 18:23 Dose: 14 mg Ramipril (Altace -) 10 mg PO DAILY [facility] Risperidone (Risperdal -) 4 mg PO HS [facility] Last Admin: 10/13/16 23:17 Dose: 4 mg Spironolactone (Aldactone -) 25 mg PO BID [facility] Last Admin: 10/13/16 23:18 Dose: 25 mg Thiamine HCl (Vitamin B1 -) 100 mg PO DAILY [facility] Review of Systems Constitutional: denies Chills or Fever Respiratory: reports: Dyspnea Cardiovascular: As noted above Gastrointestinal: denies Nausea, Vomiting, Diarrhea or Constipation or Abdominal Discomfort Genitourinary: No Symptoms Reported Musculoskeletal: No Symptoms Reported - Objective Vital Signs: Last Vital Signs Temp Pulse Resp BP Pulse Ox 97.6 F 74 20 142/67 97 10/14/16 06:00 10/14/16 06:00 10/14/16 06:00 10/14/16 06:00 10/14/16 06:00 Intake & Output 10/11/16 10/12/16 10/13/16 10/14/16 23:59 23:59 23:59 23:59 Intake Total 860 370 Output Total 200 Balance 660 370 Weight 370 lb Constitutional: No Distress, Calm Cardiovascular: S1-S2 Regular Rate Rhythm No Murmurs Clicks or Gallops Respiratory: Clear to auscultation and percussion Bilaterally Gastrointestinal: Soft benign Normal Bowel Sounds Ext: 2+ Edema Bilaterally Labs: Troponin, BNP 10/13/16 10/13/16 10/13/16 12:35 12:35 18:15 Troponin I < 0.02 < 0.02 B-Natriuretic Peptide 108.44 CBC, BMP 10/13/16 12:35 10/13/16 12:35 Hepatic Panel Total Bilirubin 1.6 mg/dL (0.2-1.0) H D 10/13/16 12:35 AST 104 U/L (15-37) H 10/13/16 12:35 ALT 66 U/L (12-78) 10/13/16 12:35 Alkaline Phosphatase 99 U/L (45-117) 10/13/16 12:35 Albumin 3.5 g/dl (3.4-5.0) 10/13/16 12:35 INR, PTT INR 1.44 (0.82-1.09) H 10/13/16 12:35 Assessment/Plan ASSESSMENT: 1. Clinical presentation with dyspnea and increasing bilateral lower extremity edema with no clinical evidence of congestive heart failure, upper airway congestion with hypoventilation syndrome, probable COPD, probable obstructive sleep apnea 2. Bilateral lower extremity edema related to chronic venous insufficiency, stasis dermatitis, 3. Coronary artery disease angina pectoris to be evaluated, can be done as outpatient 4. Diastolic left ventricular dysfunction with class 0 [place] Heart Association classification left ventricular failure 5. HTN 6. Thrombocytopenia and elevated INR, probably related to chronic liver disease , possible alcohol induced 7. Poly-substance abuse including alcohol, tobacco and Cocaine PLAN: 1. Continue Lopressor 2. Continue Altace 3. Continue Lasix and add Aldactone with close monitoring of renal function 4. Ideally should be on ASA, but to defer in view of thrombocytopenia and elevated INR, probably related to chronic liver disease, should be evaluated as per the primary team 5. Echocardiography for evaluation of LV size and function and RVSP 6. May be transferred to medical floor (as outlined in yesterdays note) since there is no clinical evidence of de-compensated LV failure, ACS or sustained arrhythmia 7. Alcohol and drug detox, as per the primary team Ginger Vasquez MD
[2016-10-14] MEDS: NICOTINE 14 MG/24 HOURS TOPICAL PATCH TD SCH (09:36)
[2016-10-14] MEDS: METOPROLOL TARTRATE 50 MG TABLET (FP) PO SCH (09:36)
[2016-10-14] MEDS: FUROSEMIDE 40 MG TABLET (FP) PO SCH (09:36)
[2016-10-14] MEDS: SPIRONOLACTONE 25 MG TABLET (FP) PO SCH (09:36)
[2016-10-14] MEDS ORDERED: THIAMINE HCL 100 MG TABLET (FP) PO SCH (10:00)
[2016-10-14] MEDS ORDERED: FLUoxetine HCL 10 MG CAPSULE (FP) PO SCH (10:00)
[2016-10-14] MEDS ORDERED: RAMIPRIL 5 MG CAPSULE (FP) PO SCH (10:00)
[2016-10-14 12:16] VITALS: BP 130/60; PULSE 70; TEMP 98
--- NOTE | 2016-10-14 12:53 | EKG ---
Test Reason : Blood Pressure : / mmHG Vent. Rate : 068 BPM Atrial Rate : 068 BPM P-R Int : 164 ms QRS Dur : 108 ms QT Int : 442 ms P-R-T Axes : -10 044 040 degrees QTc Int : 469 ms NORMAL SINUS RHYTHM NORMAL ECG WHEN COMPARED WITH ECG OF 12-OCT-2016 18:24, NO SIGNIFICANT CHANGE WAS FOUND Confirmed by SIMBA VORA MD ([id number]) on 10/14/2016 12:53:36 PM Referred By: Confirmed By:SIMBA VORA MD
--- NOTE | 2016-10-14 13:15 | DS ---
Physical Examination Vital Signs: Vital Signs Temperature 98 F 10/14/16 10:00 Pulse Rate 70 10/14/16 10:00 Respiratory Rate 18 10/14/16 10:00 Blood Pressure 130/60 10/14/16 10:00 O2 Sat by Pulse Oximetry (%) 98 10/14/16 09:00 Constitutional: Yes: No Distress HENT: Yes: Atraumatic Neck: Yes: Supple Cardiovascular: Yes: Regular Rate and Rhythm Respiratory: Yes: CTA Bilaterally Gastrointestinal: Yes: Normal Bowel Sounds Edema: RUE: 1+, LLE: 1+ Neurological: Yes: Alert, Oriented Discharge Summary Reason For Visit: PRECORDIAL PAIN Current Active Problems Alcohol dependence with uncomplicated intoxication (Acute) Alcohol dependence with uncomplicated withdrawal (Acute) Amphetamine abuse (Acute) Cocaine dependence (Acute) Dyspnea on exertion (Acute) Nicotine dependence (Acute) Precordial chest pain (Acute) Right ankle swelling (Acute) Acne rosacea (Chronic) Hypertension (Chronic) Morbidly obese (Chronic) Schizoaffective disorder (Chronic) - Instructions Diet, Activity, Other Instructions: follow up cadiology/pmd 1 week Referrals: Jamie New MD [Primary Care Provider] - Disposition: HOME - Home Medications Comprehensive Discharge Medication List: Ambulatory Orders [place] Carbonate [Eskalith -] 600 mg PO AM 10/12/16 [place] Carbonate [Eskalith -] 900 mg PO HS 10/12/16 Chlordiazepoxide [Librium -] 0 mg PO ASDIR 10/13/16 Fluoxetine HCl [Prozac] 30 mg PO DAILY 10/13/16 Furosemide [Lasix -] 40 mg PO BID 10/13/16 Hydroxyzine Pamoate [Vistaril -] 50 mg PO Q4H PRN 10/13/16 Metoprolol Tartrate [Lopressor] 50 mg PO BID 10/13/16 Nicotine Patch [Nicoderm Patch -] 1 patch TD DAILY 10/13/16 Ramipril 10 mg PO DAILY 10/13/16 Risperidone 4 mg PO HS 10/13/16 Thiamine HCl [Vitamin B1] 100 mg PO DAILY 10/13/16 Spironolactone [Aldactone -] 25 mg PO BID #60 tablet 10/14/16 pt stable cleared to be dc home by cardiology ptdoes not want to go back to [facility] as he stated he finished detox protocol there called dr jd min on his cell [phone]..left message
== END 2016-10-14 14:23 | disposition home or self-care (01) | DRG 198 ==
LOC: JER 11:59 → JERBED 15:09 → J4W 21:18
PROVIDERS: ADMIT Internal Medicine; ATTEND Internal Medicine
DX: R07.2 Precordial pain (principal); F10.230 Alcohol dependence with withdrawal, uncomplicated; F14.20 Cocaine dependence, uncomplicated; F17.210 Nicotine dependence, cigarettes, uncomplicated; I10 Essential (primary) hypertension; M25.471 Effusion, right ankle; F25.9 Schizoaffective disorder, unspecified; I25.119 Atherosclerotic heart disease of native coronary artery with unspecified angina pectoris; D69.6 Thrombocytopenia, unspecified; I87.2 Venous insufficiency (chronic) (peripheral); E66.01 Morbid (severe) obesity due to excess calories; Z68.41 Body mass index [BMI] 40.0-44.9, adult
CPT/HCPCS: 36415; 71020-TC; 80053; 82550; 82553; 83735; 83880; 84484; 85025; 85610; 93005; 93010; 93306-TC; 99285-25; J2794

== ENCOUNTER 2017-01-26 22:09 | Inpatient (IN) | payer OTHER ==
[2017-01-26 22:29] VITALS: BMI 43.3
--- NOTE | 2017-01-26 23:29 | HP ---
CIWA Score - CIWA Score Nausea/Vomitin Muscle Tremors: 3 Anxiety: 3 Agitation: 3 Paroxysmal Sweats: 4-Forehead w/Sweat Beads Orientation: 3-Disoriented Date>2 days Tacttile Disturbances: 2-Mild Itch/Numbness/Burn Auditory Disturbances: 0-None Visual Disturbances: 1-Very Mild Sensitivity Headache: 1-Very Mild CIWA-Ar Total Score: 22 Admission ROS S - HPI Chief Complaint: WITHDRAWAL SYMPTOMS Allergies/Adverse Reactions: Allergies Allergy/AdvReac Type Severity Reaction Status Date / Time Penicillins Allergy Severe Jaw swollen Verified 01/26/17 23:00 bee stings Allergy Severe Swelling Uncoded 01/26/17 23:00 History of Present Illness: 41 y.o. man with an extensive history of alcohol and drug dependence is here seeking detox. He was last here for detox on 10/12/16 but did not completed detox due to medical issues. Exam Limitations: Intoxication - Ebola screening Have you traveled outside of the country in the last 21 days: No (N) Have you had contact with anyone from an Ebola affected area: No Have you been sick,other than usual withdrawal symptoms: No Do you have a fever: No - Review of Systems Constitutional: Diaphoresis, Loss of Appetite, Night Sweats, Changes in sleep, Unexplained wgt Loss EENT: reports: Double Vision (in right eye d/t to a trauma that occurred when he was 26 y.o.), Tearing Respiratory: reports: Shortness of Breath, Other Cardiac: reports: No Symptoms Reported GI: reports: Diarrhea, Vomiting, Abdominal cramping : reports: No Symptoms Reported Musculoskeletal: reports: No Symptoms Reported Integumentary: reports: Dryness, Other (B/L DISCOLORATION TO LE) Neuro: reports: Headache, Numbness, Tingling, Tremors Endocrine: reports: No Symptoms Reported Hematology: reports: No Symptoms Reported Psychiatric: reports: Mood/Affect Appropiate, Anxious, Depressed, other ( Bipolar and schizophrenic) Other Systems: Reviewed and Negative Patient History - Patient Medical History Hx Anemia: No Hx Asthma: No Hx Chronic Obstructive Pulmonary Disease (COPD): No Hx Cancer: No Hx Cardiac Disorders: No Hx Congestive Heart Failure: No Hx Hypertension: Yes (on med) Hx Hypercholesterolemia: No Hx Pacemaker: No HX Cerebrovascular Accident: No Hx Seizures: No Hx Dementia: No Hx Diabetes: No Hx Gastrointestinal Disorders: No Hx Liver Disease: No Hx Genitourinary Disorders: No Hx Sexually Transmitted Disorders: No Hx Renal Disease (ESRD): No Hx Thyroid Disease: No Hx Human Immunodeficiency Virus (HIV): No Hx Hepatitis C: No Hx Depression: Yes Hx Suicide Attempt: No Hx Bipolar Disorder: Yes Hx Schizophrenia: Yes - Patient Surgical History Past Surgical History: Yes Hx Neurologic Surgery: No Hx Cataract Extraction: No Hx Cardiac Surgery: No Hx Lung Surgery: No Hx Breast Surgery: No Hx Breast Biopsy: No Hx Abdominal Surgery: No Hx Appendectomy: No Hx Cholecystectomy: No Hx Genitourinary Surgery: No Hx Section: No Hx Orthopedic Surgery: Yes (RIGHT KNEE SURGERY 1997) Other Surgical History: right eye muscle weaknee he uses glasses Anesthesia Reaction: No - PPD History Previous Implant?: Yes Documented Results: Negative w/proof Date: 02/15/15 Results: 0 mm PPD to be Administered?: Yes - Reproductive History Patient is a Female of Child Bearing Age (11 -55 yrs old): No - Smoking Cessation Smoking history: Current every day smoker Have you smoked in the past 12 months: Yes Aproximately how many cigarettes per day: 2 Cigars Per Day: 0 Hx Chewing Tobacco Use: No Initiated information on smoking cessation: Yes 'Breaking Loose' booklet given: 01/26/17 - Substance & Tx. History Hx Alcohol Use: Yes Hx Substance Use: Yes Substance Use Type: Alcohol, Cocaine Hx Substance Use Treatment: Yes (LAST DETOX HERE ON 10/12/16; NO RECENT REHAB SERVICES) - Substances Abused Alcohol Route: Oral Frequency: Daily Amount used: LIQUOR- 5 PINTS, BEER- 2 SIX PACKS Age of first use: 10 Date of Last Use: 01/26/17 Crack Route: Smoking Frequency: 1-2 times per week Amount used: 1gm Age of first use: 12 Date of Last Use: 01/24/17 Family Disease History - Family Disease History Family Disease History: Heart Disease: Father (alcohol,), Mother, Other : Father Admission Physical Exam S - Vital Signs Vital Signs: Vital Signs - 24 hr 01/26/17 22:25 Temperature 98.1 F Pulse Rate 78 Respiratory 18 Rate Blood Pressure 108/50 - Physical General Appearance: Yes: Disheveled, Intoxicated, Obese, Tremorous, Irritable, Sweating, Anxious HEENTM: Yes: Hearing grossly Normal, Normal ENT Inspection, Normocephalic, Normal Voice Respiratory: Yes: Chest Non-Tender, Lungs Clear, Normal Breath Sounds, No Respiratory Distress, No Accessory Muscle Use Neck: Yes: No masses,lesions,Nodules, Trachea in good position Breast: Yes: Breast Exam Deferred Cardiology: Yes: Regular Rhythm, Regular Rate, S1, S2 Abdominal: Yes: Normal Bowel Sounds, Non Tender, Flat, Soft Genitourinary: Yes: Other (No complaints reported) Back: Yes: Normal Inspection Musculoskeletal: Yes: Back pain, Joint Stiffness Extremities: Yes: Tremors, Pedal Edema (B/l pitting edema), Swelling (B/L LE) 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
[2017-01-26] MEDS ORDERED: guaiFENesin/D-METHORPHAN HB 10 ML UNIT-DOSE CUPS PO PRN (23:44)
[2017-01-26] MEDS ORDERED: MAGNESIUM CITRATE 300 ML BOTTLE PO PRN (23:44)
[2017-01-26] MEDS ORDERED: hydrOXYzine PAMOATE 50 MG CAPSULE (FP) PO PRN (23:44)
[2017-01-26] MEDS ORDERED: NICOTINE POLACRILEX 4 MG GUM BC PRN (23:44)
[2017-01-26] MEDS ORDERED: MAGNESIUM HYDROX 2400MG/30ML ORAL SUSPENSION 30 ML CUP PO PRN (23:44)
[2017-01-26] MEDS ORDERED: P-EPHED 60MG/TRIPROLIDI 2.5MG TABLET PO PRN (23:44)
[2017-01-26] MEDS ORDERED: IBUPROFEN 400 MG TABLET (FP) PO PRN (23:44)
[2017-01-26] MEDS ORDERED: ACETAMINOPHEN 325 MG TABLET (FP) PO PRN (23:44)
[2017-01-26] MEDS ORDERED: diphenhydrAMINE HCL 50 MG CAPSULE PO PRN (23:44)
[2017-01-26] MEDS ORDERED: chlordiazePOXIDE HCL 25 MG CAPSULE PO ONE (23:44)
[2017-01-26] MEDS ORDERED: chlordiazePOXIDE HCL 25 MG CAPSULE PO PRN (23:44)
[2017-01-26] MEDS ORDERED: MAG HYDROX/AL HYDROX/SIMETH 30 ML UNIT-DOSE CUP PO PRN (23:44)
[2017-01-26] MEDS ORDERED: MENTHOL/PHENOL 1 EACH UD MM PRN (23:44)
[2017-01-27] MEDS: chlordiazePOXIDE HCL 25 MG CAPSULE PO SCH ×5 (05:36→22:00)
--- NOTE | 2017-01-27 10:15 | PN ---
S CIWA - CIWA Score Nausea/Vomitin Muscle Tremors: 3 Anxiety: 3 Agitation: 2 Paroxysmal Sweats: 1-Minimal Palms Moist Orientation: 0-Oriented Tacttile Disturbances: 1-Very Mild Itch/Numbness Auditory Disturbances: 1-Very Mild Visual Disturbances: 1-Very Mild Sensitivity Headache: 2-Mild CIWA-Ar Total Score: 17 BHS Progress Note (SOAP) Subjective: ALERT,IRRITABLE,ANXIOUS,INTERRUPTED SLEEP,TREMOR,EDEMA BOTH LEGS CHRONIC Objective: 01/27/17 10:13 Vital Signs Temperature 98.1 F 01/27/17 06:03 Pulse Rate 73 01/27/17 06:30 Respiratory Rate 18 01/27/17 06:30 Blood Pressure 121/76 01/27/17 06:03 O2 Sat by Pulse Oximetry (%) EKG NSR PROLONG QT NO CHEST PIN,NO SOB,NO DIZZINESS LABS PENDING Assessment: 01/27/17 10:14 WITHDRAWAL SYMPTOM Plan: CONTINUE DETOX
[2017-01-27 10:36] LABS: MCH 32.2 pg (25.7-33.7); MCHC 34.4 g/dl (32.0-35.9); MEAN CELL VOLUME 93.7 fl (80-96); MEAN PLT VOLUME 9.7 fl (7.5-11.1); PLATELET COUNT 118 K/MM3 (134-434); WHITE BLOOD COUNT 5.6 K/mm3 (4.0-10.0)
[2017-01-27] MEDS: FUROSEMIDE 40 MG TABLET (FP) PO SCH ×2 (11:49→21:37)
[2017-01-27] MEDS: RAMIPRIL 5 MG CAPSULE (FP) PO SCH (11:49)
[2017-01-27] MEDS: METOPROLOL TARTRATE 50 MG TABLET (FP) PO SCH ×2 (11:49→21:37)
[2017-01-27] MEDS: PRENATAL VITAMINS W/ FOLIC ACID TABLET (FP) PO SCH (11:49)
[2017-01-27] MEDS: SPIRONOLACTONE 25 MG TABLET (FP) PO SCH ×2 (11:49→21:37)
[2017-01-27] MEDS: NICOTINE 14 MG/24 HOURS TOPICAL PATCH TD SCH (11:51)
[2017-01-27 12:22] LABS: ALBUMIN 3.2 g/dl (3.4-5.0); ANION GAP 13 (8-16); CALCIUM 8.7 mg/dL (8.5-10.1); CO2 24 mmol/L (21-32); CREATININE 0.7 mg/dL (0.7-1.3); GLUCOSE,RANDOM 93 mg/dL (74-106); SGOT/AST 38 U/L (15-37); SGPT/ALT 38 U/L (12-78)
[2017-01-27 12:24] LABS: ALK PHOS 90 U/L (45-117); BILIRUBIN,TOTAL 0.9 mg/dL (0.2-1.0); TOT PROT 6.5 g/dl (6.4-8.2)
--- NOTE | 2017-01-27 12:33 | CONSULT ---
[facility] Psychiatric Consult - Data Date of interview: 01/27/17 Admission source: [facility] Identifying data: One of multiple admissions to [facility] for this 41 y/o male seeking detox treatment on for alcohol and cocaine dependence.Patient is ,a father of one,domiciled,unemployed and supported on Social Security benefits. Substance Abuse History: Discussed in detail with the patient.Mr Rodriguez confirms this pattern of substance abuse reported earlier at [facility] : Smoking Cessation. Smoking history: Current every day smoker. Have you smoked in the past 12 months: Yes. Aproximately how many cigarettes per day: 2. Cigars Per Day: 0. Hx Chewing Tobacco Use: No. Initiated information on smoking cessation : Yes. 'Breaking Loose' booklet given: 01/26/17. - Substance & Tx. History. Hx Alcohol Use: Yes. Hx Substance Use: Yes. Substance Use Type: Alcohol, Cocaine. Hx Substance Use Treatment: Yes (LAST DETOX HERE ON 10/12/16; NO RECENT REHAB SERVICES). - Substances Abused. Alcohol. Route: Oral. Frequency: Daily. Amount used: LIQUOR- 5 PINTS, BEER- 2 SIX PACKS. Age of first use: 10. Date of Last Use: 01/26/17. Crack. Route: Smoking. Frequency: 1-2 times per week. Amount used: 1gm. Age of first use: 12. Date of Last Use: 01/24/17 Medical History: Significant for morbid obesity,rosacea,hypertension,chronic back pain and venous stasis (lower extremities).History of cataract extraction ( right eye) and orthopedic surgery in 1997 (right knee). Psychiatric History: Patient is a fair historian.Mr Rodriguez presents with an extensive history of mental illness.Known to the [facility] in [facility].Last admitted there five years ago.Diagnosed with Schizoaffective Disorder.Patient sees a psychiatrist in [facility] for medication management ( maintained on a regimen of risperdal 2 mg po bid + prozac 30 mg po daily + depakote 500 mg po bid + abilify 2 mg po daily.Medications are confirmed by survey of recent pharmacy claims at [facility] # [id number] on 01/06/17, 12/29/16, 12/24/16).No history of suicide attempts.Patient endorses good adherence to his medications. Physical/Sexual Abuse/Trauma History: Patient denies. Additional Comment: Urine Drug Screen Results: BZO-Benzodiazepines.Noted. Mental Status Exam - Mental Status Exam Alert and Oriented to: Time, Place, Person Cognitive Function: Good Patient Appearance: Unkempt, Disheveled (tall,imposing stature.Morbidly obese) Mood: Withdrawn, Apprehensive Affect: Mood Congruent Patient Behavior: Fatigued, Cooperative Speech Pattern: Clear Voice Loudness: Normal Thought Process: Goal Oriented Thought Disorder: Not Present Hallucinations: Denies Suicidal Ideation: Denies Homicidal Ideation: Denies Insight/Judgement: Poor Sleep: Well (as per self-report) Appetite: Good Muscle strength/Tone: Normal Gait/Station: Normal Psychiatric Findings - Problem List ([place] 1, 2,3) (1) Schizoaffective disorder Current Visit: Yes Status: Chronic (2) Alcohol dependence with uncomplicated withdrawal Current Visit: Yes Status: Acute (3) Cocaine dependence Current Visit: Yes Status: Acute (4) Nicotine dependence Current Visit: Yes Status: Acute (5) Right ankle swelling Current Visit: Yes Status: Acute (6) Acne rosacea Current Visit: Yes Status: Chronic (7) Hypertension Current Visit: Yes Status: Chronic (8) Morbidly obese Current Visit: Yes Status: Chronic - Initial Treatment Plan Initial Treatment Plan: Psychoeducation.Detoxification in progress.Medications : risperdal 2 mg po bid + prozac 30 mg po daily.Depakote is held in view of thrombocytopenia (valproic acid is requested).Side effects/benefits discussed with the patient.This includes risk for dystonias,dyskinesias,akathisia,akinesia ,neuroleptic malignant syndrome,sexual impotence,galactorrhea,gynecomastia cardiovascular adverse events (risperdal),blood dyscrasias,weight gain,alopecia areata,liver dysfunction,sedation (valproate),suicidal ideation/sexual dysfunction (prozac).Patient aknowledges his understanding of information and he insists to get back on his medications.Observation.Mr Rodriguez is in agreement with this plan of care.
--- NOTE | 2017-01-27 14:05 | EKG ---
Test Reason : Blood Pressure : / mmHG Vent. Rate : 077 BPM Atrial Rate : 077 BPM P-R Int : 172 ms QRS Dur : 110 ms QT Int : 442 ms P-R-T Axes : -19 051 015 degrees QTc Int : 500 ms NORMAL SINUS RHYTHM PROLONGED QT ABNORMAL ECG WHEN COMPARED WITH ECG OF 13-OCT-2016 12:11, NO SIGNIFICANT CHANGE WAS FOUND Confirmed by АННА HAN MD ([id number]) on 01/27/2017 2:04:42 PM Referred By: Confirmed By:АННА HAN MD
[2017-01-27] MEDS: THIAMINE HCL 100 MG TABLET (FP) PO SCH (21:38)
[2017-01-27] MEDS: risperiDONE 2 MG TABLET PO SCH (21:59)
[2017-01-28] MEDS: chlordiazePOXIDE HCL 25 MG CAPSULE PO SCH ×3 (06:14→17:19)
--- NOTE | 2017-01-28 09:42 | PN ---
S CIWA - CIWA Score Nausea/Vomitin Muscle Tremors: 3 Anxiety: 2 Agitation: 2 Paroxysmal Sweats: 1-Minimal Palms Moist Orientation: 0-Oriented Tacttile Disturbances: 1-Very Mild Itch/Numbness Auditory Disturbances: 1-Very Mild Visual Disturbances: 1-Very Mild Sensitivity Headache: 2-Mild CIWA-Ar Total Score: 16 S Progress Note (SOAP) Subjective: alert,irritable,anxious,interrupted sleep,tremor Objective: 01/28/17 09:40 Vital Signs Temperature 97.3 F L 01/28/17 06:23 Pulse Rate 69 01/28/17 06:23 Respiratory Rate 20 01/28/17 06:23 Blood Pressure 119/62 01/28/17 06:23 O2 Sat by Pulse Oximetry (%) Laboratory Last Values WBC 5.6 K/mm3 (4.0-10.0) 01/27/17 06:30 RBC 4.31 M/mm3 (4.00-5.60) 01/27/17 06:30 Hgb 13.9 GM/dL (11.7-16.9) 01/27/17 06:30 Hct 40.4 % (35.4-49) 01/27/17 06:30 MCV 93.7 fl (80-96) 01/27/17 06:30 MCH 32.2 pg (25.7-33.7) 01/27/17 06:30 MCHC 34.4 g/dl (32.0-35.9) 01/27/17 06:30 RDW 14.0 % (11.9-15.9) 01/27/17 06:30 Plt Count 118 K/MM3 (134-434) L D 01/27/17 06:30 MPV 9.7 fl (7.5-11.1) 01/27/17 06:30 Sodium 141 mmol/L (136-145) 01/27/17 06:30 Potassium 3.9 mmol/L (3.5-5.1) 01/27/17 06:30 Chloride 104 mmol/L (98-107) 01/27/17 06:30 Carbon Dioxide 24 mmol/L (21-32) 01/27/17 06:30 Anion Gap 13 (8-16) 01/27/17 06:30 BUN 8 mg/dL (7-18) D 01/27/17 06:30 Creatinine 0.7 mg/dL (0.7-1.3) 01/27/17 06:30 Creat Clearance w eGFR > 60 (>60) 01/27/17 06:30 Random Glucose 93 mg/dL (74-106) 01/27/17 06:30 Calcium 8.7 mg/dL (8.5-10.1) 01/27/17 06:30 Total Bilirubin 0.9 mg/dL (0.2-1.0) D 01/27/17 06:30 AST 38 U/L (15-37) H D 01/27/17 06:30 ALT 38 U/L (12-78) D 01/27/17 06:30 Alkaline Phosphatase 90 U/L (45-117) 01/27/17 06:30 Total Protein 6.5 g/dl (6.4-8.2) 01/27/17 06:30 Albumin 3.2 g/dl (3.4-5.0) L 01/27/17 06:30 RPR Titer Nonreactive (NONREACTIVE) 01/27/17 06:30 Assessment: 01/28/17 09:41 withdrawal symptom Plan: continue detox
[2017-01-28] MEDS: PRENATAL VITAMINS W/ FOLIC ACID TABLET (FP) PO SCH (10:16)
[2017-01-28] MEDS: RAMIPRIL 5 MG CAPSULE (FP) PO SCH (10:16)
[2017-01-28] MEDS: SPIRONOLACTONE 25 MG TABLET (FP) PO SCH ×2 (10:16→22:09)
[2017-01-28] MEDS: FLUoxetine HCL 10 MG CAPSULE (FP) PO SCH (10:16)
[2017-01-28] MEDS: METOPROLOL TARTRATE 50 MG TABLET (FP) PO SCH ×2 (10:16→22:09)
[2017-01-28] MEDS: risperiDONE 2 MG TABLET PO SCH ×2 (10:16→22:09)
[2017-01-28] MEDS: FUROSEMIDE 40 MG TABLET (FP) PO SCH ×2 (10:16→22:08)
[2017-01-28] MEDS: NICOTINE 14 MG/24 HOURS TOPICAL PATCH TD SCH (10:17)
[2017-01-28] MEDS: LOPERAMIDE HCL 2 MG CAPSULE PO PRN ×2 (12:26→19:27)
[2017-01-28 14:46] LABS: URINE APPEARANCE CLEAR; URINE BILIRUBIN NEGATIVE (NEGATIVE); URINE BLOOD NEGATIVE (NEGATIVE); URINE COLOR YELLOW; URINE GLUCOSE (UA) NEGATIVE (NEGATIVE); URINE KETONE NEGATIVE (NEGATIVE); URINE LEUK ESTERASE NEGATIVE (NEGATIVE); URINE NITRITE NEGATIVE (NEGATIVE); URINE PROTEIN NEGATIVE (NEGATIVE); URINE UROBILINOGEN 4.0 E.U/dl mg/dL (0.2-1.0)
[2017-01-28] MEDS: chlordiazePOXIDE 5 MG CAPSULE PO SCH (22:07)
[2017-01-28] MEDS: THIAMINE HCL 100 MG TABLET (FP) PO SCH (22:09)
[2017-01-29] MEDS: chlordiazePOXIDE 5 MG CAPSULE PO SCH ×3 (06:29→17:33)
--- NOTE | 2017-01-29 09:49 | PN ---
S Progress Note (SOAP) Subjective: ALERT,IRRITABLE,ANXIOUS,INTERRUPTED SLEEP,TREMOR Objective: 01/29/17 09:48 Vital Signs Temperature 97.9 F 01/29/17 09:23 Pulse Rate 75 01/29/17 09:23 Respiratory Rate 18 01/29/17 09:23 Blood Pressure 122/63 01/29/17 09:23 O2 Sat by Pulse Oximetry (%) Assessment: 01/29/17 09:48 WITHDRAWAL SYMPTOM Plan: CONTINUE DETOX,DISCHARGE IN AM,PSYCHIATRIC EVALUATION FOR PSCY MEDS
[2017-01-29] MEDS: RAMIPRIL 5 MG CAPSULE (FP) PO SCH (10:20)
[2017-01-29] MEDS: PRENATAL VITAMINS W/ FOLIC ACID TABLET (FP) PO SCH (10:20)
[2017-01-29] MEDS: FUROSEMIDE 40 MG TABLET (FP) PO SCH ×2 (10:20→17:33)
[2017-01-29] MEDS: risperiDONE 2 MG TABLET PO SCH ×2 (10:21→22:17)
[2017-01-29] MEDS: FLUoxetine HCL 10 MG CAPSULE (FP) PO SCH (10:21)
[2017-01-29] MEDS: METOPROLOL TARTRATE 50 MG TABLET (FP) PO SCH ×2 (10:21→22:17)
[2017-01-29] MEDS: SPIRONOLACTONE 25 MG TABLET (FP) PO SCH ×2 (10:21→22:17)
[2017-01-29] MEDS: NICOTINE 14 MG/24 HOURS TOPICAL PATCH TD SCH (10:22)
[2017-01-29] MEDS: THIAMINE HCL 100 MG TABLET (FP) PO SCH (22:17)
[2017-01-29] MEDS: chlordiazePOXIDE HCL 10 MG CAPSULE PO SCH (22:17)
[2017-01-30] MEDS: chlordiazePOXIDE HCL 10 MG CAPSULE PO SCH ×2 (07:24→11:07)
[2017-01-30] MEDS: FUROSEMIDE 40 MG TABLET (FP) PO SCH (07:24)
--- NOTE | 2017-01-30 08:40 | DS ---
[facility] Detox Discharge Summary Admission Date: 01/26/17 Discharge Date: 01/30/17 - History Present History: Alcohol Dependence, Cocaine Dependence Pertinent Past History: hypertension morbid obesity nicotine dependence - Physical Exam Results Vital Signs: Vital Signs Temperature 98.0 F 01/30/17 06:26 Pulse Rate 90 01/30/17 06:26 Respiratory Rate 18 01/30/17 06:26 Blood Pressure 121/71 01/30/17 06:26 O2 Sat by Pulse Oximetry (%) Pertinent Admission Physical Exam Findings: follow up with after care program as arrangement - Treatment Hospital Course: Detox Protocol Followed, Detoxed Safely, Responded well, Discharged Condition Good, Rehab Referral Accepted Patient has Accepted a Re[facility] Referral to: [facility] - Medication Discharge Medications: Ambulatory Orders Fluoxetine HCl [Prozac] 30 mg PO DAILY 10/13/16 Furosemide [Lasix -] 40 mg PO BID 10/13/16 Hydroxyzine Pamoate [Vistaril -] 50 mg PO Q4H PRN 10/13/16 Metoprolol Tartrate [Lopressor] 50 mg PO BID 10/13/16 Ramipril 10 mg PO DAILY 10/13/16 Risperidone 4 mg PO HS 10/13/16 Spironolactone [Aldactone -] 25 mg PO BID #60 tablet 10/14/16 Divalproex Sodium [Depakote] 500 mg PO BID 01/28/17 Fluoxetine HCl [Prozac -] 30 mg PO DAILY #90 tablet 01/28/17 Risperidone [Risperdal] 2 mg PO BID #60 tablet 01/28/17 - Diagnosis (1) Alcohol dependence with uncomplicated withdrawal Current Visit: Yes Status: Acute (2) Cocaine dependence Current Visit: Yes Status: Acute (3) Nicotine dependence Current Visit: Yes Status: Acute (4) Hypertension Current Visit: Yes Status: Chronic (5) Morbidly obese Current Visit: Yes Status: Chronic (6) Schizoaffective disorder Current Visit: Yes Status: Chronic - AMA Did Patient Leave Against Medical Advice: No
--- NOTE | 2017-01-30 09:02 | PN ---
[facility] Progress Note Note: Psychiatry Attending's note : Valproic acid level = 48 Issue of thrombocytopenia revisited. Discussed with medical attending,Dr Espinoza. ETOH origin is suspected. Will resume depakote 500 mg po bid. Scripts to [facility] # [id number] : cancelled. Spoke to pharmacist at [phone]. Re-routed to [facility] ([phone]). Depakote 500 mg po bid (500 mg tab # 60) Prozac 30 mg po daily (10 mg tab # 90) Risperdal 2 mg po bid (2mg tab # 60) Benign hospital course.
[2017-01-30 11:00] VITALS: BP 130/74; PULSE 74; TEMP 97.9
[2017-01-30] MEDS: PRENATAL VITAMINS W/ FOLIC ACID TABLET (FP) PO SCH (11:03)
[2017-01-30] MEDS: RAMIPRIL 5 MG CAPSULE (FP) PO SCH (11:04)
[2017-01-30] MEDS: risperiDONE 2 MG TABLET PO SCH (11:04)
[2017-01-30] MEDS: FLUoxetine HCL 10 MG CAPSULE (FP) PO SCH (11:04)
[2017-01-30] MEDS: SPIRONOLACTONE 25 MG TABLET (FP) PO SCH (11:04)
[2017-01-30] MEDS: METOPROLOL TARTRATE 50 MG TABLET (FP) PO SCH (11:04)
[2017-01-30] MEDS: NICOTINE 14 MG/24 HOURS TOPICAL PATCH TD SCH (11:08)
== END 2017-01-30 11:30 | disposition home or self-care (01) | DRG 774 ==
LOC: YASAS 22:09 → Y6N 23:00
PROVIDERS: ADMIT Internal Medicine; ATTEND Internal Medicine
PROC: HZ2ZZZZ Detoxification Services for Substance Abuse Treatment (ICD-10-PCS; principal; 2017-01-26)
DX: F10.230 Alcohol dependence with withdrawal, uncomplicated (principal); F14.20 Cocaine dependence, uncomplicated; F17.210 Nicotine dependence, cigarettes, uncomplicated; F25.9 Schizoaffective disorder, unspecified; E66.01 Morbid (severe) obesity due to excess calories; Z68.41 Body mass index [BMI] 40.0-44.9, adult; L71.9 Rosacea, unspecified
CPT/HCPCS: 36415; 80053; 80164; 81003; 85027; 86593; 93005; 93010